=== PATIENT | female | born 1930 | race Caucasian/White ===

== ENCOUNTER → 2016-10-16 | Outpatient (CLI) | payer MEDICARE, BC, MEDICAID ==
[~2016-10-16] MED LIST: ACETAMINOP160 MG/51 PO; ANTIVERT12.5 MG PO; BENADRYL-DPS25 MG PO; CEPACOL SORE T1 EACH PO; COLACE-DPS100 MG PO; COMPAZINE10 MG PO; COUMADIN4 MG PO; COUMADIN5 MG PO; COUMADIN6 MG PO; DELTASONE DPS1 MG PO; DULCOLAX-DPS10 MG PR; DULCOLAX-DPS5 MG PO; DUONEB DPS3 ML IH; FLEXERIL-DPS10 MG PO; FLONASE 0.05% D16 GM NS; IMODIUM DPS2 MG PO; KLOR-CON M2020 ME1 PO; LASIX DPS20 MG PO; LASIX DPS40 MG PO; LEVAQUIN DPS250 MG PO; LEXAPRO DPS10 MG PO; LEXAPRO DPS20 MG PO; LOPRESSOR DPS12.5 MG PO; LOVENOX DP30 MG/0.3 SQ; MAALOX DPS30 ML PO; MACROBID100 MG PO; MAG-AL PLUS XS30 ML PO; MERREM500 MG IV; MILK OF MAGNESI10 ML PO; MIRALAX PACKET17 GM PO; MOBIC DPS7.5 MG PO; NAMENDA5 MG PO; NORCO 5-325 TA1 EACH PO; OXY IR DPS10 MG PO; OXY IR DPS5 MG PO; PAMELOR DPS25 MG PO; PERCOCET 5 DPS1 TAB PO; PHENERGAN DPS25 MG PO; PROTONIX40 MG PO; ROBITUSSIN DM D30 ML PO; SENOKOT DPS8.6 MG PO; SENOKOT8.6 MG PO; SPORTS CREAM85 GM TP; SURFAK DPS240 MG PO; SYNTHROID DP0.025 MG PO; THERA1 EACH PO; THERAPEUTIC MUL1 TAB PO; TUMS DPS500 MG PO; TYLENOL DPS325 MG PO; TYLENOL-DPS650 MG PR; ULTRAM DPS50 MG PO; VIBRAMYCIN-DPS100 M2 PO; XANAX DPS0.25 MG PO; XANAX DPS0.5 MG PO; ZOFRAN4 MG PO
== END | disposition home or self-care (01) ==
LOC: PTH.S 10:11
DX: Z01.818 Encounter for other preprocedural examination (principal)

== ENCOUNTER 2016-10-24 09:46 | Inpatient (IN) | payer MEDICARE, BC, MEDICAID ==
[~2016-10-24] VITALS: Ht 165.1 cm; Wt 92.4 kg
[~2016-10-24 09:46] MED LIST changes: -ACETAMINOP160 MG/51 PO; -BENADRYL-DPS25 MG PO; -CEPACOL SORE T1 EACH PO; -COMPAZINE10 MG PO; -COUMADIN5 MG PO; -DELTASONE DPS1 MG PO; -FLEXERIL-DPS10 MG PO; -IMODIUM DPS2 MG PO; -LASIX DPS40 MG PO; -LEXAPRO DPS10 MG PO; -LOVENOX DP30 MG/0.3 SQ; -OXY IR DPS10 MG PO; -PHENERGAN DPS25 MG PO; -SENOKOT8.6 MG PO; -TUMS DPS500 MG PO; -XANAX DPS0.25 MG PO
[2016-10-29] MEDS ORDERED: OXY IR DPS10 MG PO (09:40)
[2016-10-29] MEDS ORDERED: LOVENOX DP30 MG/0.3 SQ (09:42)
[2016-10-29] MEDS ORDERED: MIRALAX PACKET17 GM PO (09:44)
[2016-10-29] MEDS ORDERED: KLOR-CON M2020 ME1 PO (09:44)
[2016-10-29] MEDS ORDERED: DELTASONE DPS1 MG PO (09:44)
[2016-10-29] MEDS ORDERED: LEXAPRO DPS10 MG PO (09:44)
[2016-10-29] MEDS ORDERED: MOBIC DPS7.5 MG PO (09:44)
[2016-10-29] MEDS ORDERED: LASIX DPS40 MG PO (09:44)
[2016-10-29] MEDS ORDERED: PHENERGAN DPS25 MG PO (09:45)
[2016-10-29] MEDS ORDERED: PROTONIX40 MG PO (09:45)
[2016-10-29] MEDS ORDERED: SYNTHROID DP0.025 MG PO (09:45)
[2016-10-29] MEDS ORDERED: SENOKOT8.6 MG PO (09:45)
[2016-10-29] MEDS ORDERED: THERA1 EACH PO (09:45)
[2016-10-29] MEDS ORDERED: ULTRAM DPS50 MG PO (09:46)
[2016-10-29] MEDS ORDERED: TYLENOL-DPS650 MG PR (09:46)
[2016-10-29] MEDS ORDERED: FLONASE 0.05% D16 GM NS (09:47)
[2016-10-29] MEDS ORDERED: BENADRYL-DPS25 MG PO (09:47)
[2016-10-29] MEDS ORDERED: CEPACOL SORE T1 EACH PO (09:47)
[2016-10-29] MEDS ORDERED: DULCOLAX-DPS5 MG PO (09:48)
[2016-10-29] MEDS ORDERED: COMPAZINE10 MG PO (09:48)
[2016-10-29] MEDS ORDERED: FLEXERIL-DPS10 MG PO (09:48)
[2016-10-29] MEDS ORDERED: MAALOX DPS30 ML PO (09:48)
[2016-10-29] MEDS ORDERED: ROBITUSSIN DM D30 ML PO (09:49)
[2016-10-29] MEDS ORDERED: SURFAK DPS240 MG PO (09:49)
[2016-10-29] MEDS ORDERED: MILK OF MAGNESI10 ML PO (09:49)
[2016-10-29] MEDS ORDERED: TUMS DPS500 MG PO (09:50)
[2016-10-29] MEDS ORDERED: TYLENOL DPS325 MG PO (09:50)
[2016-10-29] MEDS ORDERED: ZOFRAN4 MG PO (09:51)
[2016-10-29] MEDS ORDERED: XANAX DPS0.25 MG PO (09:51)
[2016-10-29] MEDS ORDERED: DUONEB DPS3 ML IH (09:51)
[2016-10-29] MEDS ORDERED: DULCOLAX-DPS10 MG PR (09:52)
[2016-10-29] MEDS ORDERED: COUMADIN5 MG PO (09:53)
--- NOTE | 2016-10-31 07:52 | CO ---
ADMIT: 10/24/2016 RM/LOC: [facility] MR#: [id number] [address] [address] [place] [address] Consultation Report SEX: F AGE: 86 : 1930 CORRECTED: 10/27/2016 1333 DJS DATE OF CONSULTATION: 10/17/2016 ATTENDING PHYSICIAN: Thierno Tracey MD CONSULTING PHYSICIAN: Sheldon Veliz MD CHIEF COMPLAINT: Osteoarthritis of right hip. HISTORY OF PRESENT ILLNESS: Shelly is an 86-year-old female, who has severe osteoarthritis of her major joints. She has been seen by Dr. Tracey, is scheduled for surgery next week for right total knee arthroplasty. She has had a previous right total hip and left total hip. She currently is in a correction due to inability to care for herself primarily because of immobility due to knee pain. She had severe hip pain, had the left hip replaced this past February 2016, and that helped her pain quite a bit, but now her pain in the right knee is so severe she is not able to get around. She is extremely high risk for surgery and this has been explained to her and her family and her POA both this past fall and currently. She was at high risk at previous hip replacement and she did quite well with that. She is seen today in the office for preoperative evaluation. Her laboratory and EKG were all reviewed. ALLERGIES: SHE IS ALLERGIC TO: 1. BETA-BLOCKERS. 2. CODEINE. 3. ERYTHROMYCIN. 4. PENICILLIN. 5. SULFA. 6. MACRODANTIN. CURRENT MEDICATIONS: 1. DuoNeb twin jet nebulizer q.4 hours. 2. Coumadin 4 mg three days a week and 3 mg four days a week. 3. Levothyroxine 25 mcg p.o. daily. 4. Omeprazole 20 mg daily. 5. Flonase two sprays daily each nostril. 6. Lasix 20 mg p.o. daily. 7. Meloxicam 7.5 mg daily. 8. MiraLax 17 g p.o. daily. 9. Potassium 20 mEq supplement daily. 10.Multivitamin daily. 11.Citalopram 40 mg p.o. daily. 12.Prednisone 10 mg daily. 13.Senokot stool softener 8.6 mg two tablets daily. 14.Acetaminophen 1 tablet q.i.d., 650 mg strength. 15.Tramadol 50 mg q.i.d. ADMIT: 10/24/2016 RM/LOC: [facility] MR#: [id number] [address] [address] [place] [address] Consultation Report SEX: F AGE: 86 : 1930 16.Phenergan 25 mg at bedtime. 17.P.r.n. Maalox. 18.P.r.n. Lortab 5/325, one every 6 hours. 19.P.r.n. stool softener. 20.P.r.n. Zofran. 21.Xanax 0.5 mg every 4 hours p.r.n., for anxiety. PAST MEDICAL HISTORY: 1. She had right total hip replacement in 2004. 2. Left total hip replacement in February 2016. 3. Hospitalized in June 2016 with urosepsis. 4. July of 2012, she was hospitalized with subarachnoid bleed. 5. September of 2012, she was hospitalized with bilateral massive pulmonary emboli. She had been on anticoagulant therapy since then. She has had a previous history of total hysterectomy for benign disease, partial colectomy for diverticular disease, several ventral hernia repairs, two sections, chronic urinary incontinence with multiple urological procedures and multiple episodes of urinary tract infection. She also has GERD, hypertension, chronic severe anxiety disorder, chronic depression, chronic obstructive pulmonary disease, osteoarthritis, fibromyalgia, and chronic pain syndrome. FAMILY HISTORY: Noncontributory. SOCIAL HISTORY: . Does not use tobacco or alcohol. Currently a resident of correction. REVIEW OF SYSTEMS: GENERAL: She states she is nauseated all the time. She has never vomited, just feels nauseated. Feels achy and hurts all over. She is complaining of fatigue. Tired when she wakes up. Tired when she goes to sleep at night. HEENT: Denies any specific headache, blurry vision, or double vision. PULMONARY: No cough, shortness of breath, or chest pain. CARDIAC: Denies any chest pain. GI: Bowel movements are fairly regular. Positive for GERD, although, symptoms were well controlled at this time. : Loss of bladder control, fairly frequently. Denies any dysuria. PSYCHIATRIC: Positive for chronic anxiety and depression. Rest review of systems is negative. PHYSICAL EXAMINATION: GENERAL: An 86-year-old female. She is alert, cooperative, oriented x3. Fairly flat affect and sad. VITAL SIGNS: In the office were stable. Blood pressure in our office today was 126/68; heart rate 95, regular; temp 98.4; O2 saturation 96% on room air. Weight not able to obtain nor height due to being wheelchair bound. She appears to be approximately 240 pounds. HEENT: Eyes; PERRLA. EOMs intact. TMs not seen. Throat is moist, well ADMIT: 10/24/2016 RM/LOC: [facility] MR#: [id number] [address] [address] [place] [address] Consultation Report SEX: F AGE: 86 : 1930 hydrated, not inflamed. NECK: Supple. No lymphadenopathy. No thyromegaly. LUNGS: Clear to auscultation. Respirations are nonlabored. HEART: Regular rate. No murmur heard. BREASTS: Not examined. ABDOMEN: Obese. No organomegaly or tenderness. /RECTAL: Deferred. EXTREMITIES: No clubbing, cyanosis, or edema. She does have some crepitations, decreased range of motion of her right knee. ASSESSMENT: 1. Severe osteoarthritis, right knee. 2. Generalized osteoarthritis. 3. Chronic anxiety disorder. 4. Depression. 5. Fibromyalgia. 6. Chronic pain syndrome. 7. Gastroesophageal reflux disease. 8. History of pulmonary emboli. 9. Prior history of intracranial bleed with stroke. 10.Obesity. PLAN: The patient is okay for OR at this time. She is at high risk and she and her family understand this. Lovenox will be used to bridge her this next week. She will be off her Coumadin for one week prior to the surgery. We will bridge her with Lovenox slightly under recommended dose due to her previous bleeding issues. We will put her at 60 mg subcu b.i.d. We will hold that 24 hours before her knee replacement surgery. She will then restart her Coumadin after surgery, but will need some low-dose Lovenox bridging. Laboratory was reviewed and she is okay for OR. Sheldon Veliz MD/ panchito JOB #: [id number] CC: Thierno Tracey MD, Attending Physician Sheldon Veliz MD, Family Physician CORRECTED: 10/27/2016 1333 DJS
--- NOTE | 2016-11-10 09:25 | OR ---
ADMIT: 10/24/2016 RM/LOC: [facility] MR#: [id number] [address] [address] [place], [place] [id number] Operative/Delivery Room Report SEX: F AGE: 86 : 1930 SURGERY DATE: 10/24/2016 SURGEON: Thierno Tracey MD PREOPERATIVE DIAGNOSIS: Right knee degenerative joint disease. POSTOPERATIVE DIAGNOSES: 1. Right knee degenerative joint disease. 2. Valgus knee. PROCEDURES: Right total knee arthroplasty with intra-articular knee block. ANESTHESIA: Spinal. ESTIMATED BLOOD LOSS: 50 mL. TOTAL TOURNIQUET TIME: Approximately 80 minutes. COMPLICATIONS: None. CONDITION: Fair to recovery room. INDICATIONS: The patient is an 86-year-old female, multiple medical problems, severe arthritis of her hips and knees. She has undergone hip replacements on both the right and left hip having significant pain in the right knee at this point, limiting her activities significantly. We have tried conservative treatment, which has failed to this point. At this point, the patient has elected to proceed with a right total knee arthroplasty. We discussed the procedure as well as risks and benefits with the patient and her at length, questions were answered, and they agreed to proceed, she did get preop clearance from Dr. Veliz, placing her at high surgical risk. They do understand this and wished to proceed. DESCRIPTION OF PROCEDURE: Informed consent was obtained. The patient was taken to the operating room, placed on the operative table in supine position. The patient was then placed in a seated position. A spinal anesthetic was administered. After adequate spinal anesthesia, a tourniquet was placed on the right upper thigh and the right lower extremity was prepped and draped in usual sterile fashion. Once this was completed, we exsanguinated the right lower extremity, inflated the tourniquet to 300 mmHg. We then made a midline incision through the skin and subcutaneous tissues. Making a bit of a medial flap here. We then entered the knee through a medial parapatellar incision. Once this was completed, we excised the fat and synovium from the suprapatellar region. We then performed a partial medial release since she did have valgus knee here using a Bovie electrocautery off the proximal tibia here. The patella was then everted and knee flexed. The infrapatellar fat pad was then excised. Once this was completed, we then placed the guide for the distal femoral cut. We drilled then placed intramedullary guide, this was set at 5 degrees valgus and set to remove 13 mm of distal bone. This was then ADMIT: 10/24/2016 RM/LOC: [facility] MR#: [id number] [address] [address] [place] [address] Operative/Delivery Room Report SEX: F AGE: 86 : 1930 pinned into position. Distal femoral cut was then performed. Once this was completed, the tibial guide was then placed and pinned and we then made our tibial cut. We then extended the knee, placed the 10 spacer block for extension. This was actually quite tight. We then replaced the tibial cutting guide, removed about 3 to 4 mm additionally from the proximal tibia. Once this was completed, we then placed the extension block once again with good full extension and good stability. Once this was completed, we then placed a meal temperer, cleaned out the remainder of the meniscus and soft tissue here. Once this was all cleaned, we then placed the patellar cutting guide to remove 9.5 mm from the patella, clamped this, everted the patella, and made our patellar cut. This sized to a size 35, placed a template, impacted this into position, and drilled the lugs for the 35 mm patellar button. Once this was completed, the knee was then flexed back up, and we placed the sizing guide for the femoral component. This sized to about a size 3. We pinned this in 3 degree degrees of external rotation and placed a size 3 cutting block moving this anteriorly too. Once this was completed, we pinned this and made our anterior, posterior, and chamfer cuts. We then placed the box cutting guide for size 3, pinned this into position and made our box cut. Once this was completed, we then trialed the knee with a size 3 femoral component, size 3 tibial component with a 10 mm tibial insert and a 35 mm patellar button. Good full extension, good stability, good flexion, good tracking of the patella. Once this was completed, the knee was then flexed back up. We then drilled the lugs for the femoral component. The trial components were then removed. Medial, lateral, and popliteal retractor was then placed. We sized the tibia to a size 2.5. We pinned this into position. We then placed the tower followed by the reamer and the keel punch. Once this was completed, the knee was then copiously irrigated and placed into full extension. The meal temperer was placed. We copiously irrigated the knee, injected the posterior, medial, and lateral capsule using our pain control cocktail. While this was being performed, the components were opened on the back table to include a size 3 femoral component, size 2.5 tibial component, and 35 mm patellar button. We then cleaned and dried the bony ends thoroughly while the cement was being mixed. Medial, lateral, and popliteal retractors then placed once again. Once the cement was ready, we finger packed this into the proximal tibia and into the keel hole. We then placed the tibial tray, impacted this into position removing excess cement using a Kingston elevator. Once this was completed, the cement was then placed onto the distal femur. The femoral component was then placed, impacted into position with excess cement once again removed using a Kingston elevator. Once this was completed, we placed a size 10 trial tibial component and held the knee in full extension placing the heel on the table on a pad. Cement was then placed onto the patella, 35 mm patellar button was then placed, clamped into position, once again removing the excess cement using a Kingston elevator. We then copiously irrigated the knee once again. Injected the remainder of the capsule, periosteum, and subcutaneous tissues using the pain control injectable cocktail. Once this was completed, the cement was cured. We then trialed this again using a 10 mm insert, good full extension, good stability, good ADMIT: 10/24/2016 RM/LOC: 506 [facility] MR#: [id number] [address] [address] [facility] [place] [address] Operative/Delivery Room Report SEX: F AGE: 86 : 1930 patellar tracking, and good flexion. We then elected to use a 10 mm tibial insert. We copiously irrigated the tibial tray, placed the insert impacted this and locked this into position. Once this was completed, we then took the knee through a final range of motion, good patellar tracking, good full extension, flexion past 120 degrees, good stability. The knee was then copiously irrigated one final time. Medium Hemovac drain was then placed. The medial parapatellar incision was reapproximated using #1 Vicryl in a [id number] fashion. Subcutaneous tissues then closed using 2-0 Vicryl in a simple fashion and the skin was closed using skin leighton. A sterile compressive dressing was then applied consisting of Xeroform, plain gauze, ABDs, Webril, Sandoval wrap from the foot to the thigh. The patient then transferred to recovery room in fair condition. Thierno Tracey MD/ panchito JOB #: [id number] CC: Thierno Tracey, Attending Physician Sheldon Veliz, Family Physician
--- NOTE | 2016-11-10 09:25 | HP ---
ADMIT: 10/24/2016 RM/LOC: [facility] MR#: [id number] [address] [address] [place], [place] [id number] Pre-OP History and Physical SEX: F AGE: 86 : 1930 DATE OF SERVICE: CHIEF COMPLAINT: Right knee pain. HISTORY OF PRESENT ILLNESS: The patient is an 86-year-old female with severe osteoarthritis of her right knee. She underwent a left total hip arthroplasty at the end of last summer and she did fairly well with this. Her pain is much improved. I have been seeing her for some right knee pain and degenerative joint disease. We have tried an injection, and some other different treatments, which have not relieved her pain at this point. She and her family want to proceed with a right total knee arthroplasty. We had her see Dr. Veliz as is at high risk for surgery. We discussed this with the patient and her in the office at length and they do wish to proceed at this point. PAST MEDICAL HISTORY: Significant for right and left total hip arthroplasties. Hospitalized in June 2016 with urosepsis. History of subarachnoid bleed, history of bilateral massive pulmonary emboli. She has gastroesophageal reflux disease, hypertension, chronic severe anxiety, depression, COPD, arthritis, fibromyalgia, and chronic pain syndrome. MEDICATIONS: Include: 1. DuoNeb. 2. Coumadin. 3. Levothyroxine. 4. Omeprazole. 5. Flonase. 6. Lasix. 7. Meloxicam. 8. MiraLax. 9. Potassium. 10.Multivitamin. 11.Citalopram. 12.Prednisone. 13.Senokot. 14.Acetaminophen. 15.Tramadol. 16.Phenergan. P.r.n. medications include: 1. Maalox. 2. Lortab. 3. Stool softener. 4. Zofran. 5. Xanax. SOCIAL HISTORY: The patient denies alcohol or tobacco use. She is currently a [facility] resident. REVIEW OF SYSTEMS: Please see Dr. Veliz's history and physical. ADMIT: 10/24/2016 RM/LOC: [facility] MR#: [id number] [address] [address] [place] [address] Pre-OP History and Physical SEX: F AGE: 86 : 1930 PHYSICAL EXAMINATION: HEENT: As per Dr. Veliz's preoperative evaluation. HEART: As per Dr. Veliz's preoperative evaluation. LUNGS: As per Dr. Veliz's preoperative evaluation. ABDOMEN: As per Dr. Veliz's preoperative evaluation. EXTREMITIES: Examination of the right knee, she has generalized tenderness to palpation about the knee and has some mild valgus alignment. Tender along both the medial and lateral aspect of the parapatellar region. Range of motion close to 0 degrees of extension. Flexion about 120 degrees. No gross instability. IMAGING DATA: X-rays show severe degenerative changes about the knee, particularly lateral compartment; joint space narrowing; subchondral sclerosis; osteophyte formation. ASSESSMENT: Right knee degenerative joint disease. PLAN: At this point, the patient would like to proceed. The patient and family elected to proceed with a right total knee arthroplasty. She has seen Dr. Veliz for preoperative medical clearance. She has been cleared. She is on Lovenox bridge for anticoagulation at this point. We as well as Dr. Veliz discussed with the patient and family. She is at high risk for surgery, but they would like to proceed at this point. We discussed the procedure as well as risks and benefits of total knee arthroplasty. Questions were answered. They do agree to proceed at this point. Thierno Tracey MD/ panchito JOB #: [id number] CC: Thierno Tracey, Attending Physician Sheldon Veliz, Family Physician
--- NOTE | 2016-11-28 12:25 | DS ---
ADMIT: 10/24/2016 RM/LOC: 503 [facility] MR#: [id number] [address] [address] [place] [address] General Discharge Summary SEX: F AGE: 86 : 1930 ADMISSION DATE: 10/24/2016 DISCHARGE DATE: 10/27/2016 REASON FOR ADMISSION: Elective right total knee arthroplasty after failing conservative management for osteoarthritis. PREOPERATIVE DIAGNOSIS: Right knee valgus degenerative joint disease. POSTOPERATIVE DIAGNOSIS: Right knee valgus degenerative joint disease. PROCEDURE PERFORMED: Right total knee arthroplasty. ANESTHETIC: Spinal. COMPLICATIONS: None. BLOOD LOSS: 50 mL. SURGEON: Thierno Tracey MD ASSISTANTS: ADRIENNE Lemus and ADRIENNE Yi. ACTIVE MEDICAL PROBLEMS: Osteoarthritis, recent history of urosepsis in June 2016, chronic urinary incontinence, hypertension, chronic severe anxiety disorder, chronic depression, chronic obstructive pulmonary disease, fibromyalgia, and chronic pain syndrome. HOSPITAL COURSE: Shelly was admitted on 10/24/2016 for elective right total knee arthroplasty, was completed successfully by Dr. Tracey. There were no complications intraoperatively. Postoperatively as she had a during previous hospitalization for total joint, she had worsening of her confusion. This again was consistent with her previous surgery and was expected preoperatively. She did fairly well with pain control with the use of the intraoperative pain cocktail. She was started on Lovenox 30 mg subcu b.i.d. for DVT prophylaxis as well as she was bridge back onto her Coumadin. On postoperative day #1, she was having little bit of anxiety secondary to mild- to-moderate pain. She was started on Xanax. This did help. On postoperative day #2, she had improved with her anxiety as well as her confusion. Family is at her bedside during her hospital stay. There was some conflicting opinions from them on pain management as the thought she needed more pain medications and daughter thought she was overmedicated. We did tailor her medications very well to keep her appropriately medicated for her pain. During that period, had been using Percocet q.6 hours p.r.n., which was satisfactory for pain control on day 2. On day 3, she did stabilize with her pain. Her INR was stable, but does slowly trending back towards therapeutic at 1.18. She did experience mild acute surgical blood loss anemia, hemoglobin dropped to 7.8., but she did not require transfusion. On postop day #3, she was stable and showed improvement and was ready for discharge with plans to go to halfway for rehabilitation. ADMIT: 10/24/2016 RM/LOC: 503 [facility] MR#: [id number] [id number] [address] [facility] [place] [address] General Discharge Summary SEX: F AGE: 86 : 1930 DISCHARGE MEDICATIONS: 1. Deltasone 10 mg daily. 2. Klor-Con 20 mEq daily. 3. Lasix 20 mg daily. 4. Lexapro 20 mg daily. 5. MiraLax daily. 6. Mobic 7.5 mg daily. 7. Phenergan 25 mg in the evening p.r.n. 8. Omeprazole 20 mg daily. 9. Senokot b.i.d. p.r.n. 10.Synthroid 0.025 mg daily. 11.Therapeutic multivitamin daily. 12.Tylenol 650 mg q.4 p.r.n. 13.Ultram 50 mg one to two q.6 p.r.n. 14.Flonase two sprays daily. 15.Lovenox 30 mg subcu b.i.d. until therapeutic on her INR. 16.Benadryl 25 mg q.6 p.r.n. 17.Cepacol p.r.n. 18.Compazine p.r.n. 19.Flexeril 10 mg t.i.d. p.r.n. 20.Maalox p.r.n. 21.Milk of Mag p.r.n. 22.OxyIR 5 mg one q.4 p.r.n. 23.Robitussin p.r.n. 24.Surfak p.r.n. 25.Tums p.r.n. 26.Xanax 0.25 mg q.4 p.r.n. 27.Zofran 4 mg q.4 p.r.n. 28.DuoNebs p.r.n. 29.Warfarin as directed. Maintain therapeutic INR 2.0 to 3.0. DISCHARGE INSTRUCTIONS: Shelly will undergo therapy per total knee arthroplasty protocol in the inpatient setting. She will follow up in the Orthopedic office in 2 weeks for wound check, 6 weeks with x-rays. She will follow up with primary care as directed. Ivan Mcbride PA-C / Thierno Tracey MD / panchito JOB #: [id number] CC: Thierno Tracey MD, Attending Physician Sheldon Veliz MD, Family Physician
[2017-03-14] MEDS ORDERED: IMODIUM DPS2 MG PO (10:37)
[2017-03-14] MEDS ORDERED: ACETAMINOP160 MG/51 PO (10:42)
== END 2016-10-27 12:00 | DRG 470 ==
LOC: WOR 09:46 → 5MS 09:46
PROVIDERS: ADMIT Orthopaedic Surgery
PROC: 0SRC0J9 Replacement of Right Knee Joint with Synthetic Substitute, Cemented, Open Approach (ICD-10-PCS; principal; 2016-10-24)
DX: M15.9 Polyosteoarthritis, unspecified (principal); I11.0 Hypertensive heart disease with heart failure; I50.9 Heart failure, unspecified; I48.0 Paroxysmal atrial fibrillation; D62 Acute posthemorrhagic anemia; J44.9 Chronic obstructive pulmonary disease, unspecified; K21.9 Gastro-esophageal reflux disease without esophagitis; R32 Unspecified urinary incontinence; F41.9 Anxiety disorder, unspecified; F32.9 Major depressive disorder, single episode, unspecified; H54.8 Legal blindness, as defined in USA; M79.7 Fibromyalgia; G89.4 Chronic pain syndrome; Z79.01 Long term (current) use of anticoagulants; Z86.711 Personal history of pulmonary embolism; Z86.79 Personal history of other diseases of the circulatory system; Z96.643 Presence of artificial hip joint, bilateral; Z86.19 Personal history of other infectious and parasitic diseases